=== PATIENT | female | born 1990 | race Caucasian/White ===

== ENCOUNTER 2021-03-12 11:48 | Emergency (ER) | payer OTHER, SELFPAY ==
--- NOTE | ~2021-03-12 | US_ITS ---
EXAMINATION: US renal BI DATE: 03/12/2021 13:38 INDICATION: Hematuria. Left lower quadrant pain. TECHNIQUE: Multiple ultrasound grayscale images of the kidneys were obtained. COMPARISON: None. FINDINGS: The right kidney measures 10.3 x 4.8 x 4.9 cm. The left kidney measures 11.1 x 6.5 x 4.2 cm. The kidn eys demonstrate normal echogenicity. Mild bilateral hydronephrosis, left greater than right. No stone s identified. The bladder is partially decompressed which mildly limits evaluation. There is mass eff ect from the dome of the bladder resulting from the gravid uterus. No ureteral jets observed within t he bladder over 5 minutes of observation.. IMPRESSION: 1. Mild bilateral hydronephrosis, left greater than right which could be related to nonvisualized ur eteral stone or more likely extrinsic compression from the gravid uterus. Reviewed, dictated and finalized at location A. IMPRESSION: 1. Mild bilateral hydronephrosis, left greater than right which could be relat ed to nonvisualized ureteral stone or more likely extrinsic compression from th e gravid uterus.
--- NOTE | ~2021-03-12 | US_ITS ---
EXAMINATION: US OB limited DATE: 03/12/2021 13:41 INDICATION: Left lower quadrant abdominal pain TECHNIQUE: Real-time ultrasound of the pelvis was performed. The interpreting radiologist was not pre sent for the study. COMPARISON: None. FINDINGS: There is a single living fetus in vertex presentation. The placenta is right fundal. heart rat e is 157 beats per minute (bpm). The amniotic fluid volume is subjectively normal. IMPRESSION: 1. Single living fetus in vertex presentation with heart rate of 157 bpm. Reviewed, dictated and finalized at location A. IMPRESSION: 1. Single living fetus in vertex presentation with heart rate of 157 bpm .
[2021-03-12 12:03] VITALS: BP 118/70; PULSE 80; RESP 16; TEMP 37.3; O2SAT 100
[2021-03-12 12:59] LABS: Add Urine Microscopic? YES; Appearance Urine Clear (Clear); Bilirubin Urine Negative (Negative); Blood Urine 3+ (Negative); Glucose Urine UA Negative (Negative); Ketones Urine Negative (Negative); Leukocyte Esterase Ur Negative LEU/UL (Negative); Mucus Urine Rare /lpf; Nitrate Urine Negative (Negative); Protein Urine 2+ mg/dL (Negative); RBC Urine >75 /hpf (0-2); Specific Grav Ur 1.006 (1.001-1.035); Squamous Epithelial Cell Urine Moderate /hpf (Few); Urobilinogen Urine Negative mg/dL (<2.0); WBC Urine 51-75 /hpf
[2021-03-12 13:00] LABS: Color Urine Light Red (Yellow)
--- NOTE | 2021-03-12 13:03 | ED.FEMALEGU ---
HPI - Female Genitourinary General Chief complaint: Urogenital-Female Stated complaint: blood in urine, preg Time Seen by Provider: 03/12/21 12:24 Source: patient and RN notes reviewed Mode of arrival: ambulatory Limitations: no limitations History of Present Illness HPI Narrative: This is a 30 year old female approximately 20 wk GA who presents for evaluation of hematuria. Patient noticed this morning she has some bleed in her urine. She reports her urine appears more red in ER. She denies passage of blood clots . She denies seeing any bleeding when she wipes. She denies vaginal bleeding. This morning she also reports she had left lower abdominal pain that has resolved. She has suprapubic sensation of needing to urinate now. She also reported having lower back discomfort this morning. she denies nausea, vomiting or fever. Related Data Allergies Allergy/AdvReac Type Severity Reaction Status Date / Time Sulfa (Sulfonamide Allergy Intermediate Other Verified 03/12/21 12:21 Antibiotics) Review of Systems Review of Systems: All systems reviewed & are unremarkable except as noted in HPI and below PMFSH Past Medical History Medical History (Updated 03/12/21 @ 14:30 by Cherry Jalloh MD) Patient denies medical problems Surgical History Surgical History (Updated 03/12/21 @ 13:08 by Cherry Jalloh MD) H/O breast augmentation Social History Social History (Updated 03/12/21 @ 13:08 by Cherry Jalloh MD) Smoking status: Never smoker Exam Const: General: no acute distress and alert Orientation/consciousness: patient oriented x3 Eyes: EOM: EOMs intact bilaterally Resp: Effort & Inspection: normal respiratory effort and no retractions Auscultation: clear to auscultation bilaterally Cardio: Rate: regular rate Rhythm: regular rhythm Heart sounds: no murmurs GI: GI Palp: Yes Soft to palpation, No Tenderness to palpation present (GI), No Guarding due to palpation present (GI) and No Rigid due to palpation Auscultation: normal bowel sounds Other: gravid Back/Spine/Pelvis: Back: no CVA tenderness Skin: General skin exam: normal color Rashes: no rashes Neuro: General: patient oriented x3, moves all extremities and CN's II-XI intact bilaterally Psych: Mental Status: mental status grossly normal Affect: normal affect Course Reevaluation(s) Reevaluation #1: I discussed with patient US and UA . I discussed discharge plan of antibiotics. Date: 03/12/21 Time: 14:26 Consultations Consultation #1: I Discussed urine, US and case with Dr. Aviles. He agrees with antibiotics and discharge. Patient can take tylenol for your pain and take warm shower and warm pad for her pain. Date: 03/12/21 Time: 14:24 Vital Signs Vital signs: Vital Signs Temperature 99.2 F 03/12/21 12:03 Pulse Rate 80 03/12/21 12:03 Respiratory Rate 16 03/12/21 12:03 Blood Pressure 118/70 03/12/21 12:03 Pulse Oximetry 100 03/12/21 12:03 Temperature 99.2 F 03/12/21 12:03 Pulse Rate 68 03/12/21 14:37 Respiratory Rate 16 03/12/21 14:37 Blood Pressure 108/78 03/12/21 14:37 Pulse Oximetry 100 03/12/21 14:37 MDM - Female Genitourinary Lab Data Attestation: I reviewed the patient's lab results. Labs: Lab Results 03/12/21 Range/Units 12:17 Urine Color Light red H (Yellow) Urine Appearance Clear (Clear) Urine pH 7.0 (5.0-9.0) Ur Specific [place] 1.006 (1.001-1.035) Urine Protein 2+ H (Negative) mg/dL Urine Glucose (UA) Negative (Negative) mg/dL Urine Ketones Negative (Negative) mg/dL Ur Blood (Man) 3+ H (Negative) Urine Nitrate Negative (Negative) Urine Bilirubin Negative (Negative) Urine Urobilinogen Negative (<2.0) mg/dL Leukocyte Esterase Rfl Negative (Negative) RODOLFO/UL Urine RBC >75 H (0-2) /hpf Urine WBC 51-75 H /hpf Ur Squamous Epith Cells Moderate H (Few) /hpf Urine Mucus Rare /lpf ABG Data ABG results:
[2021-03-12] MEDS: CEPHALEXIN 500 MG CAPSULE PO (14:10)
[2021-03-12 14:37] VITALS: BP 108/78; PULSE 68; RESP 16; O2SAT 100
== END 2021-03-12 14:39 | disposition home or self-care (01) ==
PROVIDERS: Physician Assistant; Emergency Provider General Practice; PCP Emergency Medicine
DX: O23.12 Infections of bladder in pregnancy, second trimester (principal); Z3A.20 20 weeks gestation of pregnancy; O99.891 Other specified diseases and conditions complicating pregnancy; N13.30 Unspecified hydronephrosis
CPT/HCPCS: 76775; 76815; 81001; 87086; 99283; 99284; A9270

== ENCOUNTER 2021-08-04 04:53 | Inpatient (IN) | payer OTHER, SELFPAY ==
[2021-08-04] VITALS (58 sets, daily range): BP systolic 111–133; BP diastolic 67–106; PULSE 60–130; RESP 16; TEMP 36.6–36.9; O2SAT 99–100; BMI 25.8
--- NOTE | 2021-08-04 04:53 | LDADM ---
This patient, Sabine Solorzano, was admitted to Labor/Delivery/Recovery 104 on 08/04/21 at 04:53. Plans for labor, pain management and were discussed with patient. Patient/family oriented to hospital policies and general routines including ID bracelet, bed and alarms, visiting hours, pain management, procedures, bathroom and other care routines, personal items, smoking policy, room service/diet and guest tray routines, infant security routines, and visiting hours. Patient/Family are encouraged to report perceived risks to care and to ask questions if they do not understand what they are told or what they should do. See OBIX for further documentation.
[2021-08-04 05:36] LABS: Basophils Absolute Auto 0.1 K/mm3 (0.0-0.1); Basophils Percent Auto 0.6 % (0.2-1.2); Eosinophils Absolute Auto 0.1 K/mm3 (0-0.3); Eosinophils Percent Auto 1.8 % (0-4.4); Hematocrit 37.3 % (37.0-47.0); Hemoglobin 12.4 g/dL (12.0-15.0); Immature Granulocyte Absolute 0.04 K/mm3 (0.00-0.031); Immature Granulocyte Percent A 0.5 % (0-0.5); Immature Platelet Fraction Pct 11.7 % (0.9-11.2); Lymphocytes Absolute Auto 2.34 K/mm3 (0.9-3.2); Lymphocytes Percent Auto 29.8 % (18.3-44.2); Mean Corpuscular HGB Conc 33.2 g/dl (32-36); Mean Corpuscular Hemoglobin 32.1 pg (26-34); Mean Corpuscular Volume 96.6 fl (80-100); Mean Platelet Volume 11.9 fl (7.4-10.4); Monocytes Absolute Auto 0.7 K/mm3 (0.1-0.6); Monocytes Percent Auto 9.2 % (2.6-8.5); Neutrophils Absolute Auto 4.6 K/mm3 (1.3-6.7); Neutrophils Percent Auto 58.1 % (45.5-73.1); Platelet Count Result 140 k/mm3 (150-375); Red Blood Count 3.86 M/mm3 (4.2-5.4); Red Cell Distribution Width 12.3 % (11.5-14.5); White Blood Count 7.8 K/mm3 (4.5-10.0)
[2021-08-04] MEDS: OXYTOCIN 30 UNITS/NS 500 ML 30 UNITS/500 ML BAG IV CONT (06:10)
[2021-08-04] MEDS: LACTATED RINGERS 1,000 ML 125 ML IV CONT ×3 (06:10→10:47)
[2021-08-04 07:12] LABS: Rapid Plasma Reagin Non-Reactive (NonReactive)
--- NOTE | 2021-08-04 07:21 | PM.IMHP ---
H&P: HPI History of Present Illness Date/Time: 08/04/21 07:21 In year old 2 para 1 whose last menstrual period was 10/17/2020, an EDC is 07/24/2021, presents at 41 weeks gestation for induction of labor secondary to postdates. She is negative for group B strep her has been uncomplicated. Chief Complaint: postdates Review of Systems Review of Systems: All systems reviewed & are unremarkable except as noted in HPI and below PMFSH Past Medical History Medical History Patient denies medical problems Surgical History Surgical History H/O breast augmentation Family History Family History Father Hypertension Social History Social History Smoking status: Never smoker Substance use: never Spiritual care concerns: No Meds Home Medications and Allergies Home Medications Medication Instructions Recorded Confirmed Type PNV cmb#95-ferrous fumarate-FA 1 tablet PO DAILY 07/07/21 08/04/21 History [] Allergies Allergy/AdvReac Type Severity Reaction Status Date / Time Sulfa (Sulfonamide Allergy Intermediate Other Verified 03/12/21 12:21 Antibiotics) Vital Signs Vital Signs - 24 hr 08/04/21 05:38 08/04/21 05:46 08/04/21 06:00 Pulse Rate 82 81 74 Blood Pressure 125/81 123/78 123/75 08/04/21 06:15 08/04/21 06:30 08/04/21 06:45 Pulse Rate 74 78 85 Blood Pressure 119/75 124/82 114/76 08/04/21 07:00 08/04/21 07:15 Pulse Rate 81 74 Blood Pressure 130/73 124/77 Exam Const: General: no acute distress Eyes: General: appearance normal, both eyes and all related structures Neck: Neck: supple and no JVD Thyroid: thyroid normal Resp: Effort & Inspection: normal respiratory effort Auscultation: clear to auscultation bilaterally Cardio: Rate: regular rate Rhythm: regular rhythm GI: Inspection: non-distended GI Palp: Yes Soft to palpation, No Tenderness to palpation present (GI) and No Guarding due to palpation present (GI) Auscultation: normal bowel sounds : External Female Exam: normal external appearance Speculum Exam - Vagina: normal appearance of the vagina Speculum Exam - Cervix: Cervical os closed ( Cervix 3/ 50/-1. AROM clear. FHTs reassuring) Skin: General skin exam: no rashes or lesions noted Extrem: General: normal to inspection and no edema Psych: Mental Status: mental status grossly normal Affect: normal affect H&P: Results Labs Labs: Short CBC 08/04/21 Range/Units 05:21 WBC 7.8 (4.5-10.0) K/mm3 Hgb 12.4 (12.0-15.0) g/dL Hct 37.3 (37.0-47.0) % Plt Count 140 L (150-375) k/mm3 Assessment and Plan Additional Plan impression: Postdates Plan: Medical of her labor. Spontaneous vaginal is expected. She is an epidural candidate
--- NOTE | 2021-08-04 08:42 | P.PNAN_ITS ---
Anes - Eval Pre Procedure Procedure: labor epidural Date/Time: 08/04/21 08:42 Surgeon: clive rivera Pre Op Diagnosis: IOL Patient Data Age: 31 Gender: F Height: 1.55 m Weight: 62 kg Last Vital Signs Temp 36.9 C 08/04/21 07:00 Pulse 77 08/04/21 08:15 BP 121/82 08/04/21 08:15 Allergies Allergy/AdvReac Type Severity Reaction Status Date / Time Sulfa (Sulfonamide Allergy Intermediate Other Verified 03/12/21 12:21 Antibiotics) Home Medications Medication Instructions Recorded Confirmed Type PNV cmb#95-ferrous fumarate-FA 1 tablet PO DAILY 07/07/21 08/04/21 History [] Laboratory Tests 08/04/21 08/04/21 08/04/21 05:21 05:21 05:21 WBC 7.8 K/mm3 K/mm3 (4.5-10.0) RBC 3.86 M/mm3 L M/mm3 (4.2-5.4) Hgb 12.4 g/dL g/dL (12.0-15.0) Hct 37.3 % % (37.0-47.0) MCV 96.6 fl fl (80-100) MCH 32.1 pg pg (26-34) MCHC 33.2 g/dl g/dl (32-36) RDW 12.3 % % (11.5-14.5) Plt Count 140 k/mm3 L k/mm3 (150-375) MPV 11.9 fl H fl (7.4-10.4) Immature Gran % (Auto) 0.5 % % (0-0.5) Neut % (Auto) 58.1 % % (45.5-73.1) Lymph % (Auto) 29.8 % % (18.3-44.2) [place] % (Auto) 9.2 % H % (2.6-8.5) Eos % (Auto) 1.8 % % (0-4.4) Baso % (Auto) 0.6 % % (0.2-1.2) Lymph # (Auto) 2.34 K/mm3 K/mm3 (0.9-3.2) [place] # (Auto) 0.7 K/mm3 H K/mm3 (0.1-0.6) Eos # (Auto) 0.1 K/mm3 K/mm3 (0-0.3) Baso # (Auto) 0.1 K/mm3 K/mm3 (0.0-0.1) Abs Immat Gran (auto) 0.04 K/mm3 H K/mm3 (0.00-0.031) Absolute Neuts (auto) 4.6 K/mm3 K/mm3 (1.3-6.7) Absolute Nucleated RBC 0.0 K/mm3 K/mm3 (0.0-0.012) Nucleated RBC % 0.0 % % (0.0-0.2) % Immature Plt Fraction 11.7 % H % (0.9-11.2) RPR Non-reactive (NonReactive) Blood Type A Positive Antibody Screen Negative Patient hx anesthesia problems: none Family hx anesthesia problems: none Results Review: All pre-operative results and documents have been reviewed as part of the pre-operative evaluation. [facility] Past Medical History Medical History Patient denies medical problems Surgical History Surgical History H/O breast augmentation Family History Family History Father Hypertension Social History Social History Smoking status: Never smoker Substance use: never Spiritual care concerns: No Exam Day of Procedure 08/04/21 08:42
--- NOTE | 2021-08-04 12:02 | PM.OBPNLAB ---
Pain Control Date/time seen: 08/04/21 12:02 cx by rn exam. ts ok
--- NOTE | 2021-08-04 14:10 | PM.OBPRVD ---
OB - Delivery Note Procedure Delivery date: 08/04/21 Procedure: mil Intrapartal events: None Induction method: AROM Delivery augmentation: pitocin Delivery monitor: external FHT Route of delivery: Episiotomy description: None Laceration Description: None Specimen: No Quantitative Blood Loss (ml): 59 Anesthesia type: Epidural Disposition: floor Baby Date of : 08/04/21 Time of : 14:03 Weeks of gestation at delivery: 41 gender: Female presentation: vertex position: Right Occiput Anterior Placenta delivery description: Spontaneous cord vessel description: 3 Vessels score one minute: 9 score five minutes: 9
[2021-08-04] MEDS: OXYTOCIN 30 UNITS/NS 500 ML 30 UNITS/500 ML BAG 125 UNITS IV CONT (14:19)
[2021-08-04] MEDS: ACETAMINOPHEN 325 MG TABLET 650 MG PO (14:33)
--- NOTE | 2021-08-04 17:00 | PC.NURSE ---
Patient transferred to post room #288 per wheelchair from labor and delivery. Support person present. Oriented to unit, room, information board, rooming in, admission packet and security measures. Patient verbalizes understanding.
[2021-08-04] MEDS: IBUPROFEN 600 MG TABLET PO (18:31)
[2021-08-05 04:05] VITALS: BP 120/81; PULSE 75; RESP 18; TEMP 37.1
[2021-08-05] MEDS: ACETAMINOPHEN 325 MG TABLET 650 MG PO ×2 (04:28→12:17)
[2021-08-05 05:21] LABS: Hematocrit 31.2 % (37.0-47.0); Hemoglobin 10.4 g/dL (12.0-15.0)
--- NOTE | 2021-08-05 08:24 | P.DS_ITS ---
DS: Admitting Diagnosis Discharge Date Admitting Diagnosis Term DS: Summary Hospital Course Hospital Course: Patient was admitted for induction of labor at 41 weeks gesta tion. She underwent spontaneous vaginal delivery was unremarkable. She was up, voiding without difficulty, ambulating breast-feeding, and generally without complaints. Time Spent with Patient Time attestation: Total time spent providing and/or coordinating discharge services: Exam Const: General: no acute distress Eyes: General: appearance normal, both eyes and all related structures Neck: Neck: supple and no JVD Thyroid: thyroid normal Resp: Effort & Inspection: normal respiratory effort Auscultation: clear to auscultation bilaterally Cardio: Rate: regular rate Rhythm: regular rhythm GI: Inspection: non-distended GI Palp: Yes Soft to palpation, No Tenderness to palpation present (GI) and No Guarding due to palpation present (GI) Auscultation: normal bowel sounds : General: Yes bladder normal to palpation External Female Exam: normal external appearance Speculum Exam - Vagina: normal vaginal discharge and No vaginal bleeding Speculum Exam - Cervix: nontender Bimanual exam- vagina & uterus: bladder normal to palpation and No Cervical tenderness present OB/external & speculum: No vaginal bleeding Skin: General skin exam: no rashes or lesions noted Extrem: General: normal to inspection and no edema Psych: Mental Status: mental status grossly normal Affect: normal affect DS: Data Data Completed and Pending Labs on day of discharge: Labs from last 24 hours 08/05/21 04:23 Hgb 10.4 L Hct 31.2 L Discharge Plan Discharge Attending physician on discharge: Palmer Booker Discharging Clinician: Palmer Booker Patient Disposition: Home, Self-Care Activity: may shower, no straining and pelvic rest Diet: heart healthy Wound Care Instructions: follow printed instructions Patient Instructions: Antibiotic Form Stand Alone Forms: General Discharge Information Follow-up/Referrals: Palmer Booker MD [Physician] - Discharge Medications: Continued PNV cmb#95-ferrous fumarate-FA [] 28 mg iron- 800 mcg Tablet 1 tablet PO DAILY RF: 0 Date of admission: 08/04/21 04:53 Primary Care Provider: Kalpesh Staples Admitting Provider: Palmer Booker Attending physician on admission: Palmer Booker Condition: Stable
--- NOTE | 2021-08-05 08:25 | PM.OBPNVD ---
OB - PN: Subj Subjective Date/time seen: 08/05/21 08:25 Patient comments: no complaints and pain well controlled baby status: doing well and nursing well OB - PN: Obj Data Labs CBC & Chem 7: 08/05/21 04:23 Labs: Laboratory Results - last 24 hr 08/05/21 04:23 Hgb 10.4 L Hct 31.2 L OB - PN A/P Plan day: 1 Plan: routine care, discharge home and follow up 6 weeks Time Spent With Patient Time: Total time spent is greater than 50% in coordination of care (as documented) at patient's floor/unit and/or counseling patient: Time with patient: less than 15 minutes Review of Systems Review of Systems: All systems reviewed & are unremarkable except as noted in HPI and below Exam Const: General: no acute distress Eyes: General: appearance normal, both eyes and all related structures Neck: Neck: supple and no JVD Thyroid: thyroid normal Resp: Effort & Inspection: normal respiratory effort Auscultation: clear to auscultation bilaterally Cardio: Rate: regular rate Rhythm: regular rhythm GI: Inspection: non-distended GI Palp: Yes Soft to palpation, No Tenderness to palpation present (GI) and No Guarding due to palpation present (GI) Auscultation: normal bowel sounds : General: Yes bladder normal to palpation External Female Exam: normal external appearance Speculum Exam - Vagina: normal vaginal discharge and No vaginal bleeding Speculum Exam - Cervix: nontender Bimanual exam- vagina & uterus: bladder normal to palpation and No Cervical tenderness present OB/external & speculum: No vaginal bleeding Skin: General skin exam: no rashes or lesions noted Extrem: General: normal to inspection and no edema Psych: Mental Status: mental status grossly normal Affect: normal affect
[2021-08-05 08:35] VITALS: BP 118/78; PULSE 60; RESP 16; TEMP 36.3; O2SAT 99
[2021-08-05 12:11] VITALS: BP 114/75; PULSE 72; RESP 16; TEMP 36.7; O2SAT 100
--- NOTE | 2021-08-05 14:55 | PC.NURSE ---
Patient instructed on viewing the discharge video Mother & Baby Care, The First Two Weeks . Patient was given the opportunity and encouraged to ask questions. Patient verbalized understanding of information shared and has been given the mother/baby guide for home reference.
[2021-08-08 10:20] VITALS: BP 116/76; PULSE 58; RESP 20; TEMP 37; O2SAT 100
== END 2021-08-05 15:10 | disposition home or self-care (01) | DRG 807 ==
LOC: ANHLDR 04:56 → ANHOB2 17:25
PROVIDERS: Admitting Provider Obstetrics & Gynecology; PCP Emergency Medicine; Visit Provider Obstetrics & Gynecology
DX: O76 Abnormality in fetal heart rate and rhythm complicating labor and delivery (principal); Z37.0 Single live birth; Z3A.41 41 weeks gestation of pregnancy
CPT/HCPCS: 36415; 85014; 85018; 85025; 85055; 86592; 86850; 86900; 86901; A9270; J2590; J2795; J7120